=== PATIENT | male | born 2000 | race Caucasian/White ===

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

== ENCOUNTER 2022-01-22 12:54 | Emergency (ER) | payer OTHER, MEDICAID, SELFPAY ==
--- NOTE | 2022-01-22 13:03 | XRR_ITS ---
PROCEDURE INFORMATION: Exam: XR Chest Exam date and time: 01/22/2022 3:30 PM Age: 21 years old Clinical indication: Sternal or substernal pain; Additional info: Chest pain TECHNIQUE: Imaging protocol: Radiologic exam of the chest. Views: 1 view. COMPARISON: No relevant prior studies available. FINDINGS: Lungs: Unremarkable. No consolidation. Pleural spaces: Unremarkable. No pleural effusion. No pneumothorax. Heart/Mediastinum: Unremarkable. No cardiomegaly. Bones/joints: Unremarkable. XR/XR chest 1V portable [id number] IMPRESSION: No acute findings.
--- NOTE | 2022-01-22 13:03 | ECG_ITS ---
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 Measurements Intervals Rebuck Rate: 65 P: 58 SD: 160 QRS: 52 QRSD: 98 T: 48 QT: 367 QTc: 384 Interpretive Statements SINUS RHYTHM No previous ECG available for comparison Electronically Signed On 01-22-2022 19:25:20 CDT by Catalino Main M.D. [email or web address]
[2022-01-22 13:16] VITALS: BP 123/84; PULSE 59; RESP 16; TEMP 36.9; O2SAT 98
--- NOTE | 2022-01-22 15:33 | W.ED.CHESTPA ---
HPI - Chest Pain General: Chief Complaint: Chest Pain Stated Complaint: CHEST PAIN Time Seen by Provider: 01/22/22 15:16 Source: patient Mode of arrival: ambulatory Limitations: no limitations History of Present Illness: Patient is a 21-year-old male who presents to ED today with a complaint of chest pain that began earlier today while he was at work. Patient states he has a longstanding history of chest pain beginning approximately 8 years ago. He states at that time he was diagnosed with pectus carinatum. Patient states he remembers having some type of work-up for this but states no intervention was ever needed. He was prescribed chest bracing for the deformity. States over the past 8 years he has had intermittent episodes of chest pain that he feels like is worsened with lifting and anxiety. He states his chest pain discomfort today was identical to previous episodes. Patient does not have a primary care provider. MD complaint: chest pain Onset (ago): year(s) Timing of current episode: episodic Prior episodes: Yes Pain location: substernal Pain radiation: none Relieving factors: nothing Exacerbating factors: other (lifting, stress) Associated symptoms: Reports no associated symptoms; Deny abdominal pain, dyspnea, fever(s), palpitations or syncope Treatment prior to arrival: none Review of Systems Const: Denies: fever(s), chills, body aches, fatigue or malaise ENMT: Denies: throat pain or odynophagia Card: Reports: chest pain; Denies: palpitations, irregular heart rhythm, edema, swelling of feet/ankles, lightheadedness, syncope, pre-syncope, dyspnea on exertion, orthopnea, leg pain with exertion or acrocyanosis Resp: Denies: dyspnea, productive cough, non-productive cough, wheezing, hemoptysis or chest congestion GI: Denies: abdominal pain : Denies: flank pain Musc: Denies: neck pain or back pain Skin/Breast: Denies: rash Neuro: Denies: headache(s), numbness in extremities, weakness in extremities or sensory changes PFSH ED PFSH: Social History Smoking and tobacco status: current every day smoker Second hand smoke exposure: No Smoking risk assessment/counseling performed?: No Current gender identity: Male Physical Exam Const: COMMON NORMALS: no acute distress, average body habitus, patient oriented x3, no limitations, healthy appearing, alert and well nourished GENERAL APPEARANCE: cooperative ORIENTATION/CONSCIOUSNESS: Yes awake, Yes oriented to person, Yes oriented to place and Yes oriented to time HENMT: COMMON NORMALS: normocephalic and atraumatic HEAD & SCALP: normal to inspection, normocephalic and atraumatic Neck/C-Spine: COMMON NORMALS: full ROM, no lymphadenopathy and no meningeal signs GENERAL: Yes normal visual inspection CERVICAL SPINE: Yes cervical ROM normal Chest: COMMONS NORMALS: normal inspection of the chest OTHER: TTP anterior chest/sternum; reports palpation directly reproduces pts pain; no severe pectus carinatum deformity noted Resp: COMMON NORMALS: normal respiratory effort and clear to auscultation bilaterally AUSCULTATION: clear to auscultation bilaterally Cardio: COMMON NORMALS: regular rate and regular rhythm RATE: regular rate RHYTHM: regular rhythm GI: COMMON NORMALS: Normal to inspection, nondistended, normoactive bowel sounds present, Soft to palpation and non-tender PALPATION: Yes Soft to palpation : COMMON NORMALS: Yes no CVA tenderness BLADDER/KIDNEY EXAM: Yes no CVA tenderness Back/Pelvis: COMMON NORMALS: no CVA tenderness, thoracic and lumbar spine normal to inspection, no thoracic nor lumbar tenderness and thoraco-lumbar ROM normal Extremity: COMMON NORMALS: normal to inspection GENERAL: Yes normal exam except as noted Neuro: RONY COMA SCALE: document GCS findings Colton coma scale eye opening: Spontaneous Colton coma scale verbal response: Orientated Rony coma scale motor response: Obey commands Rony coma scale total score: 15 COMMON NORMALS: patient oriented x3, moves all extremities, no focal motor deficits, no sensory deficits noted and gait normal SENSORIUM/ORIENTATION: Yes alert, Yes oriented to person, Yes oriented to place and Yes oriented to time MENINGEAL SIGNS: Yes no meningeal signs Skin: COMMON NORMALS: no rashes or lesions noted GENERAL SKIN EXAM: no rashes or lesions noted Course Vital Signs: Vital signs: Vital Signs Temperature 98.4 F 01/22/22 13:16 Pulse Rate 59 L 01/22/22 13:16 Respiratory Rate 16 01/22/22 13:16 Blood Pressure 123/84 01/22/22 13:16 Pulse Oximetry 98 01/22/22 13:16 Oxygen Delivery Me thod 01/22/22 13:16 MDM - Chest Pain Medical Decision Making Pain is reproducible with palpation to his anterior chest/sternum. I do not appreciate a significant pectus carinatum deformity. Patient's EKG and CXR are normal. Based on patient's history and chronicity of symptoms I have an incredibly low suspicion for anything emergent in nature. He states he lives in [place], [place]. I recommend he try to obtain a referral for a primary care provider for further evaluation and treatment which may include orthopedic or CT consultation. Patient is agreeable to this plan. Lab Data Radiology Impressions Chest X-Ray 01/22/22 13:03 IMPRESSION: No acute findings. Discharge Plan Discharge Patient Disposition: Home Clinical Impression: Non-cardiac chest pain Condition: Stable Prescriptions: No Action No Known Home Medications Discharge Orders: Discharge ED (Routine); Ordered 01/22/22 Ordered By: Felicia Becerra Referrals: Dex Blank MD [Primary Care Provider] - Stand Alone Forms: Work/School Release Coding Level of Care Code ED [employer] Manager for [employer]
== END 2022-01-22 15:48 | disposition home or self-care (01) ==
PROVIDERS: Emergency Provider Physician Assistant; PCP Family Medicine
DX: R07.89 Other chest pain (principal); F17.210 Nicotine dependence, cigarettes, uncomplicated
CPT/HCPCS: 71045; 93005; 99284